=== PATIENT | female | born 1985 | race Caucasian/White ===

== ENCOUNTER 2020-08-08 05:49 | Inpatient (IN) | payer OTHER ==
[~2020-08-08] VITALS: Ht 167.6 cm; Wt 111.6 kg
[2020-08-08 06:29] LABS: HEMOGLOBIN 12.2 gm/dl (12.3-15.3); RED BLOOD COUNT 4.14 M/UL (4.00-5.10); WHITE BLOOD COUNT 8.1 K/UL (4.5-11.0)
[2020-08-09 06:49] LABS: HEMOGLOBIN 11.5 gm/dl (12.3-15.3)
[2020-08-09] MEDS ORDERED: HYDROCODON-ACE1 EAC4 PO (09:43)
== END 2020-08-09 15:07 | disposition home or self-care (01) | DRG 806 ==
LOC: OB 05:49
PROVIDERS: Obstetrics & Gynecology; ADMIT Obstetrics & Gynecology
PROC: 10907ZC Drainage of Amniotic Fluid, Therapeutic from Products of Conception, Via Natural or Artificial Opening (ICD-10-PCS; principal; 2020-08-08)
PROC: 10E0XZZ Delivery of Products of Conception, External Approach (ICD-10-PCS; 2020-08-08)
PROC: 0KQM0ZZ Repair Perineum Muscle, Open Approach (ICD-10-PCS; 2020-08-08)
PROC: 0U7C7ZZ Dilation of Cervix, Via Natural or Artificial Opening (ICD-10-PCS; 2020-08-08)
PROC: 10H07YZ Insertion of Other Device into Products of Conception, Via Natural or Artificial Opening (ICD-10-PCS; 2020-08-08)
DX: O98.32 Other infections with a predominantly sexual mode of transmission complicating childbirth (principal); O98.82 Other maternal infectious and parasitic diseases complicating childbirth; Z37.0 Single live birth; A63.0 Anogenital (venereal) warts; O70.1 Second degree perineal laceration during delivery; Z3A.39 39 weeks gestation of pregnancy; Z90.49 Acquired absence of other specified parts of digestive tract; Z82.49 Family history of ischemic heart disease and other diseases of the circulatory system; Z80.49 Family history of malignant neoplasm of other genital organs; Z28.21 Immunization not carried out because of patient refusal
CPT/HCPCS: 36415; 51702; 81001; 82800; 85014; 85018; 85025; J2405; J7120